=== PATIENT | male | born 1980 | race Hispanic/Latino ===

== ENCOUNTER 2018-11-25 16:35 | Emergency (ER) | payer OTHER ==
[~2018-11-25] VITALS: Ht 157.5 cm; Wt 68.0 kg
== END 2018-11-25 18:09 | disposition home or self-care (01) ==
LOC: FSED 16:35
DX: L02.416 Cutaneous abscess of left lower limb (principal)
CPT/HCPCS: 10061; 27301; 87071; 87205; 99283

== ENCOUNTER 2019-02-05 10:56 | Emergency (ER) | payer OTHER ==
[~2019-02-05] VITALS: Ht 157.5 cm; Wt 72.6 kg
[2019-02-05] MEDS ORDERED: ALBUTEROL/IPRATROPIUM 3 ML NEB NEB ONE (11:15)
[2019-02-05] MEDS ORDERED: ALBUTEROL/IPRATROPIUM 3 ML NEB ONE (11:20)
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
[2019-02-05 12:01] VITALS: BP 160/89
== END 2019-02-05 12:11 | disposition home or self-care (01) ==
LOC: FSED 10:56
DX: R05 Cough (principal); J45.31 Mild persistent asthma with (acute) exacerbation
CPT/HCPCS: 71046; 99283

== ENCOUNTER 2021-05-11 12:54 | Emergency (ER) | payer OTHER ==
[~2021-05-11] VITALS: Ht 157.5 cm; Wt 76.2 kg
== END 2021-05-11 15:20 | disposition home or self-care (01) ==
LOC: FSED 14:33
DX: M25.572 Pain in left ankle and joints of left foot (principal); S92.255A Nondisplaced fracture of navicular [scaphoid] of left foot, initial encounter for closed fracture; W18.2XXA Fall in (into) shower or empty bathtub, initial encounter; Y93.E1 Activity, personal bathing and showering; Y92.002 Bathroom of unspecified non-institutional (private) residence as the place of occurrence of the external cause
CPT/HCPCS: 99283